=== PATIENT | female | born 1940 | race Caucasian/White ===

== ENCOUNTER → 2017-10-08 | Outpatient (CLI) | payer MEDICARE, OTHER ==
--- NOTE | 2017-10-08 16:11 | Diagnostic Imaging Report ---
PROCEDURE:X-RAY RIGHT FOOT, COMPLETE COMPARISON:None. INDICATIONS:FOOT TRAUMA FINDINGS: There are no acute fractures, dislocations, lytic or blastic lesions. Well corticated calcific density adjacent to the lateral first MTP may represent an old avulsion. Fixation screw across the second proximal and mid phalanx with slight lucency surrounding the screw. Loss of the expected shape of the distal metaphysis may indicate osteotomy. There is mild irregularity along the PIP joint. Moderate degenerative changes of the first metatarsal phalangeal joint. The bones are well-mineralized. The soft-tissues are unremarkable. CONCLUSION: Findings which may suggest osteotomy and fixation of the second proximal interphalangeal joint. Recommend correlation with surgical history. There is slight lucency surrounding the screw and incomplete bony bridging across the PIP joint. Dictated by: Ambrosio Bhagat M.D. on 10/08/2017 at 16:14 Electronically approved by: Ambrosio Bhagat M.D. on 10/08/2017 at 16:14
== END ==
LOC: RAD 15:20
PROVIDERS: ATTEND Family Medicine
DX: S99.921A Unspecified injury of right foot, initial encounter (principal)

== ENCOUNTER → 2017-10-21 | Outpatient (CLI) | payer MEDICARE, OTHER ==
--- NOTE | 2017-10-23 08:39 | Diagnostic Imaging Report ---
TECHNIQUE: Magnetic resonance imaging of the RIGHT foot was performed WITHOUT injected contrast. HISTORY: Right foot pain, evaluate for osteomyelitis COMPARISON: None available. DISCUSSION: Bone: Bone marrow edema and mild T1 replacement involving the proximal phalanx of the third toe. Bone marrow edema with T1 replacement involving the distal phalanx of fourth toe. Deformity of the head of the proximal phalanx fifth toe. Advanced cystic change involving the head of the proximal phalanx of the hallux. Prior fusion of the phalanges of the second toe. 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 Soft Tissues: No abscess. Generalized soft tissue edema and swelling. IMPRESSION: Findings of osteomyelitis involving the proximal phalanx of the third toe and distal phalanx of the fourth toe. Signed by: Dr. Benny Avina M.D. on 10/23/2017 8:36 AM
== END ==
LOC: MRI 17:18
PROVIDERS: ATTEND Family Medicine
DX: L97.519 Non-pressure chronic ulcer of other part of right foot with unspecified severity (principal)

== ENCOUNTER 2018-01-08 23:25 | Emergency (ER) | payer MEDICARE, OTHER ==
[~2018-01-08] VITALS: Ht 167.6 cm; Wt 67.1 kg
[2018-01-09] MEDS ORDERED: DIPHTH/TETANUS/ACEL. PERTUSSIS 0.5 ML SYR IM ONE
== END 2018-01-09 | disposition home or self-care (01) ==
LOC: FSED 23:25
DX: S61.211A Laceration without foreign body of left index finger without damage to nail, initial encounter (principal); W45.8XXA Other foreign body or object entering through skin, initial encounter; Y92.008 Other place in unspecified non-institutional (private) residence as the place of occurrence of the external cause; I10 Essential (primary) hypertension
CPT/HCPCS: 90471; 99282

== ENCOUNTER → 2019-01-26 | Outpatient (CLI) | payer MEDICARE, OTHER ==
--- NOTE | 2019-01-26 16:03 | Diagnostic Imaging Report ---
TECHNIQUE: Magnetic resonance imaging of the RIGHT foot was performed WITHOUT injected contrast. HISTORY: Forefoot pain, evaluate for osteomyelitis. COMPARISON: None available. DISCUSSION: Deformity of the first metatarsal head with arthropathy of the MTP joint. Prior fixation across the interphalangeal joint of the second toe. 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 Ulceration with T1 replacement involving the proximal phalanx fourth toe. No soft tissue abscess. Atrophy of the musculature. IMPRESSION: Osteomyelitis of the proximal phalanx fourth toe Signed by: Dr. Benny Avina M.D. on 01/26/2019 3:59 PM
== END ==
LOC: MRI 14:22
PROVIDERS: ATTEND Family Medicine
DX: L03.113 Cellulitis of right upper limb (principal)